=== PATIENT | female | born 1960 | race Caucasian/White ===

== ENCOUNTER → 2017-03-02 | Outpatient (CLI) | payer OTHER ==
[~2017-03-02] MED LIST: DICLOFENAC SOD50 MG PO; DIFLUCAN150 MG; LOTREL 5-10 MG1 EACH PO; PERCOCET 5-3251 EACH PO; PHENERGAN25 M2 RC; VICODIN 5-5001 EACH PO
== END ==
LOC: RAD 01:24
DX: Z12.31 Encounter for screening mammogram for malignant neoplasm of breast (principal)